=== PATIENT | female | born 1960 | race Caucasian/White ===

== ENCOUNTER → 2020-04-09 09:05 | Outpatient (BNVA) | payer OTHER, SELFPAY | PROVIDERS: PCP Family Medicine; Visit Provider Orthopaedic Surgery | DX: M19.011 Primary osteoarthritis, right shoulder (principal); M19.012 Primary osteoarthritis, left shoulder | CPT/HCPCS: 20610; J1100 ==

== ENCOUNTER 2020-04-09 09:44 | Outpatient (REF) | payer OTHER, SELFPAY ==
[2020-04-09 14:20] LABS: Alanine Aminotransferase 28 U/L (0-31); Anion Gap 16 (12-20); Aspartate Amino Transferase 45 U/L (5-31); Blood Urea Nitrogen 9 mg/dL (9-16); Carbon Dioxide 25 mmol/L (22-29); Chloride 105 mmol/L (96-108); Estimated Glomerular Filt Rate > 60; Potassium 3.5 mmol/l (3.3-5.1); Sodium 142 mmol/L (135-145)
== END 2020-04-09 09:45 | disposition home or self-care (01) ==
LOC: HO.10HDL 09:44
PROVIDERS: PCP Family Medicine; Visit Provider Family Medicine
DX: I10 Essential (primary) hypertension (principal); Z79.899 Other long term (current) drug therapy; E78.00 Pure hypercholesterolemia, unspecified
CPT/HCPCS: 80051; 82550; 82565; 84450; 84460; 84520

== ENCOUNTER → 2020-08-26 08:13 | Outpatient (BNVA) | payer OTHER, SELFPAY | PROVIDERS: PCP Family Medicine; Visit Provider Orthopaedic Surgery | DX: M19.011 Primary osteoarthritis, right shoulder (principal); M19.012 Primary osteoarthritis, left shoulder | CPT/HCPCS: 20610; J1040; J1100 ==

== ENCOUNTER → 2021-01-03 08:38 | Outpatient (BNVA) | payer OTHER, SELFPAY | PROVIDERS: PCP Family Medicine; Visit Provider Orthopaedic Surgery ==

== ENCOUNTER 2022-01-10 08:20 | Outpatient (REF) | payer OTHER, SELFPAY ==
[2022-01-10 11:17] LABS: Hemoglobin 12.7 g/dl (12.0-16.0); Mean Corpuscular HGB Conc 35.3 g/dl (31.0-35.0); Mean Corpuscular Hemoglobin 35.4 pg (27.0-33.0); Mean Corpuscular Volume 100.3 fL (80.0-98.0); Mean Platelet Volume 9.1 fL (9.4-12.3); Platelet Count 234 X10*3/uL (160-400); Red Blood Count 3.59 X10*6/uL (4.20-5.50); White Blood Count 5.6 X10*3/uL (4.8-10.8)
[2022-01-10 11:27] LABS: Estimated Average Glucose 97 mg/dL
[2022-01-10 11:33] LABS: Alanine Aminotransferase 32 U/L (0-31); Albumin Level 4.6 g/dL (3.5-5.0); Alkaline Phosphatase 63 U/L (39-117); Anion Gap 17 (12-20); Aspartate Amino Transferase 39 U/L (5-31); Bilirubin Total 3.1 mg/dL (0.0-1.0); Blood Urea Nitrogen 16 mg/dL (9-16); Calcium 9.7 mg/dL (8.4-10.2); Carbon Dioxide 23 mmol/L (22-29); Chloride 106 mmol/L (96-108); Cholesterol 261 mg/dL; Estimated Glomerular Filt Rate > 60; Glucose Fasting 119 mg/dL (60-99); HDL Cholesterol 108 mg/dL; LDL Cholesterol Calculated 137 mg/dl; Potassium 4.6 mmol/L (3.3-5.1); Sodium 141 mmol/L (135-145); Total Protein 7.4 g/dL (6.5-8.0); Triglycerides 80 mg/dL
[2022-01-10 11:34] LABS: Creatinine Urine 142.77 mg/dL; Microalbum/Creatinine Ratio Ur 6.3 ug/mg cr
[2022-01-10 11:50] LABS: TSH reflex Free T4 0.76 uIU/mL (0.32-4.0)
[2022-01-11 21:21] LABS: Lyme Abs Screen <0.90 index
== END 2022-01-10 08:21 | disposition home or self-care (01) ==
LOC: HO.10HDL 08:20
PROVIDERS: Visit Provider Physician Assistant
DX: I10 Essential (primary) hypertension (principal); E78.2 Mixed hyperlipidemia; T14.8XXA Other injury of unspecified body region, initial encounter; W57.XXXA Bitten or stung by nonvenomous insect and other nonvenomous arthropods, initial encounter
CPT/HCPCS: 36415; 80053; 80061; 82043; 83036; 84443; 85027; 86617; 86618

== ENCOUNTER 2023-03-22 08:17 | Outpatient (AMB) | payer OTHER, SELFPAY ==
[2023-03-22 08:41] VITALS: BP 124/84; BMI 27.5
--- NOTE | 2023-03-22 08:41 | A.OFFPC_ITS ---
Vital Signs 03/22/23 08:41 Height 5 ft 2 in Weight 150 lb 4 oz BMI 27.5 BP 124/84 Blood Pressure Location Lt brachial Position Sitting Pulse Source Pulse Oximeter Oxygen Delivery Method Room Air Intake Visit Reasons: 6 month f/u - see bulletin Home Demonstration Agent Required: No Rn Family: Not Required per policy Accompanied by: Self / Same As Patient Allergies codeine [CODEINE] Allergy (Mild, Verified 03/22/23 08:51) RASH alosetron [Lotronex] Allergy (Unknown, Verified 03/22/23 08:51) Unknown ampicillin Allergy (Unknown, Verified 03/22/23 08:51) Unknown ibuprofen Allergy (Unknown, Verified 03/22/23 08:51) Unknown meperidine [Demerol] Allergy (Unknown, Verified 03/22/23 08:51) Unknown naproxen [Naprosyn] Allergy (Unknown, Verified 03/22/23 08:51) hypertension environmental allergies Allergy (Verified 03/22/23 08:51) Unknown nabumetone Adverse Reaction (Intermediate, Verified 03/22/23 08:51) GI upset enoxaparin [From Lovenox] Adverse Reaction (Mild, Verified 03/22/23 08:51) MIGRAINE HEADACHES atenolol Adverse Reaction (Unknown, Verified 03/22/23 08:51) nausea From CODEINE PHOSPHATE SOLUBLE Allergy (Intermediate, Uncoded 03/22/23 08:42) RASH Medication List - Last Reconciled 03/22/23 by Yamil Peace PA-C atorvastatin 20 mg PO DAILY 90 days cyclobenzaprine 5 mg PO BEDTIME 30 days lisinopril 40 mg PO DAILY 90 days metoprolol succinate ER 50 mg PO BEDTIME 90 days tramadol 50 mg PO BID 30 days Tobacco use date assessed: 03/22/23 Dental Screening Dental Screen Date: 03/22/23 Did you have a dental visit in the last 12 months?: No Did you have a dental problem in the last 6 months where you did not have access to dental care?: No Was dental information given to patient?: Patient declined HPI 6 month f/u - see bulletin HPI Details Patient is a 62-year-old female here today for a follow-up visit Patient has a past medical history significant for hypertension, hyperlipidemia, osteoarthritis of shoulders, Knee osteoarthritis. Currently homeless and living in her ex husbands [facility]. .. Knee osteoarthritis:? Patient is by Orthopedics and does use tramadol for her arthritic pain.? She has had several knee surgeries in the past. .. Hypertension:? Blood pressure today in office acceptable. She reports her blood pressures are pretty stable with the use of lisinopril 40 mg and metoprolol 50 mg .. Hyperlipidemia:? Continues on statin therapy without any side effect.?.? Will follow lipids with goal LDL to be below 130. Alcohol use--> she does report drinking 3 vodka drinks per day.? We did discuss that her alcohol intake is excessive she somewhat agree. Noted elevated liver enzymes on most recent labs. She reports the reason she drinks is due to her anxiety. She feels it she can not sit still and feels often anxious. She is willing to try medication to help her with anxiety on a daily basis. [facility] Medical History High cholesterol Hypertension History of revision of total replacement of right knee joint Surgical History History of total right knee replacement Family History Mother Rheumatic aortic valve disease CVA (cerebral vascular accident) Father Dementia Social History Housing: Homeless ([facility] ) Alcohol intake: current Alcohol intake frequency: 3 or more drinks per day Alcohol type: hard liquor Patient Tobacco Use Status: Never used Tobacco Tobacco use type: Cigarette e-Cigarette/Vaping Use: Never Used Second Hand Smoke Exposure: No service: No Current occupational status: unemployed Current occupation: right and left handed Cognitive needs: No Hearing needs: No Vision needs: No Review of Systems Const Denies headache(s) Eyes Denies loss of vision ENT Denies vertigo, Denies dizziness, Denies headache(s) and Denies sore throat Card Denies chest pain, Denies leg edema and Denies lightheadedness Resp Denies cough, Denies hemoptysis and Denies wheezing GI Denies abdominal pain, Denies melena, Denies constipation, Denies diarrhea and Denies vomiting Denies urinary frequency, Denies dysuria and Denies urinary urgency Musc Denies arthralgias, Denies joint swelling, Denies numbness and Denies tingling Neuro Denies Abnormal speech present, Denies behavioral changes, Denies vertigo, Denies dizziness, Denies headache(s), Denies loss of vision, Denies memory loss, Denies numbness and Denies tingling Psych Denies anxiety, Denies behavioral changes, Denies depression, Denies memory loss and Denies panic attacks Anselmo/Lymph Denies easy bleeding and Denies easy bruising Aller/Immun Denies wheezing Physical exam (Primary Care) Vital Signs: Last Vital Signs BP 124/84 03/22/23 08:41 Oxygen Delivery Method Room Air 03/22/23 08:41 BMI result Body Mass Index 27.5 Tobacco/Smoking Status: Tobacco use Status Tobacco use date assessed 03/22/23 03/22/23 08:49 Patient Tobacco Use Status Never used Tobacco 03/22/23 08:49 Tobacco use type Cigarette 09/19/22 08:16 e-Cigarette/Vaping Use Never Used 03/22/23 08:49 Thrive Assessment: Date of Thrive Assessment Date Thrive assessed 05/03/22 09/19/22 07:58 Const General: healthy appearing, no acute distress, alert and awake Nutritional Appearance: well nourished Orientation/consciousness: oriented to person, oriented to place and oriented to time HENMT Ears: TM's normal bilaterally General nose exam: Normal nasal mucous membranes and turbinates present Eyes Conjunctivae: conjunctivae normal Sclerae: sclerae normal Pupils: Equal, round and reactive pupils present Neck Neck: Yes no lymphadenopathy and Yes no JVD Thyroid: Thyroid normal Carotids: no bruits Resp Effort & Inspection: normal respiratory effort and not tachypneic Auscultation: no crackles, no rales, no rhonchi and no wheezes Cardio Rate: regular rate Rhythm: regular rhythm Heart sounds: no murmurs and normal S1 and S2 GI Palpation (GI): Soft to palpation, nontender, no hepatomegaly and no splenomegaly Auscultation: normal bowel sounds Skin General skin exam: no rashes or lesions noted and dry skin Neuro General: oriented to person, oriented to place and oriented to time Cranial nerves: Yes Equal, round and reactive pupils present Speech: No Abnormal speech present Gait exam (Neuro): Normal gait present Motor exam (neuro): no tremor noted Extrem Right upper extremity: full ROM Left upper extremity: full ROM Right lower extremity: full ROM; no edema Left lower extremity: full ROM; no edema Psych Mental Status: mental status grossly normal Speech and movement: Normal speech and movement present Affect: normal affect Attitude: cooperative Thought process: Normal thought process present Assessment and Plan Assessment & Plan (1) HLD (hyperlipidemia): Code(s): E78.5 - Hyperlipidemia, unspecified Plan: Patient's most recent lipid panel showing very elevated total cholesterol. Has been working on lifestyle modifications to reduce her cholesterol. Continues on statin therapy as well. Goal LDL to be below 130 (2) HTN (hypertension): Code(s): I10 - Essential (primary) hypertension Plan: Patient's blood pressure acceptable today in office. . Continues on lisinopril 40 mg with goal blood pressure be below 140/90 (3) Elevated liver enzymes: Code(s): R74.8 - Abnormal levels of other serum enzymes Plan: Most recent labs showing slightly elevated liver enzymes likely due to alcohol intake. She does report drinking 2-3 vodka drinks per day. (4) Alcohol use disorder: Code(s): F10.90 - Alcohol use, unspecified, uncomplicated Plan: As above patient does admit to drinking 1-2 vodka drinks per day and does understand she needs to cut down a bit (5) Colon cancer screening: Code(s): Z12.11 - Encounter for screening for malignant neoplasm of colon Plan: Has failed to Cologuard test over last several years. now Willing to do Cologuard test (6) Breast cancer screening: Code(s): Z12.39 - Encounter for other screening for malignant neoplasm of breast Qualifiers: Breast cancer screening modality: mammogram Qualified Code(s): Z12.31 - Encounter for screening mammogram for malignant neoplasm of breast (7) MAXIMO (generalized anxiety disorder): Code(s): F41.1 - Generalized anxiety disorder Plan: Seems to be having anxiety which causes her drink. She is willing to start medication on a daily basis to help her with anxiety. Orders: Orders Lipid Panel Today E78.2 - Mixed hyperlipidemia Microalbumin, Random (w Creat) Today I10 - Essential (primary) hypertension Comprehensive [place]. Panel Fast Today I10 - Essential (primary) hypertension Complete Blood Count no Diff Today I10 - Essential (primary) hypertension Referrals Cologuard Test Z12.11 - Encounter for screening for malignant neoplasm of colon Medications: New diclofenac sodium 3% 1 appl topical BID 100 grams 1RF M19.019 - Primary osteoarthritis, unspecified shoulder citalopram (Celexa) 10 mg PO DAILY 30 days 30 tabs 2RF F41.1 - Generalized anxiety disorder Refilled lisinopril 40 mg PO DAILY 90 days 90 tabs 2RF I10 - Essential (primary) hypertension Coding Level of Care Code Est Pt Level 4 (19734) Diagnoses HLD (hyperlipidemia) E78.5 HTN (hypertension) I10 Elevated liver enzymes R74.8 Alcohol use disorder F10.90 Colon cancer screening Z12.11 Encounter for screening mammogram for malignant neoplasm of breast Z12.31 Breast cancer screening modality: mammogram MAXIMO (generalized anxiety disorder) F41.1
== END 2023-03-22 09:06 | disposition home or self-care (01) ==
PROVIDERS: Visit Provider Physician Assistant
DX: E78.5 Hyperlipidemia, unspecified (principal); I10 Essential (primary) hypertension; R74.8 Abnormal levels of other serum enzymes; F10.90 Alcohol use, unspecified, uncomplicated; Z12.11 Encounter for screening for malignant neoplasm of colon; Z12.31 Encounter for screening mammogram for malignant neoplasm of breast; F41.1 Generalized anxiety disorder
CPT/HCPCS: 99214

== ENCOUNTER 2023-05-18 08:03 | Outpatient (REF) | payer OTHER, SELFPAY ==
--- NOTE | ~2023-05-18 | XR_ITS ---
EXAMINATION: XR BILATERAL KNEES STANDING, LATERAL AND [place] CLINICAL INFORMATION: Pain and unspecified knee. COMPARISON: 01/06/2019 TECHNIQUE: AP standing view of bilateral knees. [place] and lateral views of bilateral knees. FINDINGS: Right Knee: Status post right knee total arthroplasty. Joint effusion. Hardware appears intact. Faint calcifications in the soft tissues anterior to the distal femur. Left Knee: Moderate medial joint space narrowing with medial marginal osteophytes. Trace joint effusion. Tiny posterior patellar osteophytes. XR/XR knee RT 2V IMPRESSION: 1. Status post right knee total arthroplasty. Hardware appears intact. 2. Moderate degenerative changes left knee.
--- NOTE | ~2023-05-18 | XR_ITS ---
EXAMINATION: XR BILATERAL KNEES STANDING, LATERAL AND SUNRISE CLINICAL INFORMATION: Pain and unspecified knee. COMPARISON: 01/06/2019 TECHNIQUE: AP standing view of bilateral knees. [place] and lateral views of bilateral knees. FINDINGS: Right Knee: Status post right knee total arthroplasty. Joint effusion. Hardware appears intact. Faint calcifications in the soft tissues anterior to the distal femur. Left Knee: Moderate medial joint space narrowing with medial marginal osteophytes. Trace joint effusion. Tiny posterior patellar osteophytes. XR/XR knee LT 2V IMPRESSION: 1. Status post right knee total arthroplasty. Hardware appears intact. 2. Moderate degenerative changes left knee.
--- NOTE | ~2023-05-18 | XR_ITS ---
EXAMINATION: XR BILATERAL KNEES STANDING, LATERAL AND SUNRISE CLINICAL INFORMATION: Pain and unspecified knee. COMPARISON: 01/06/2019 TECHNIQUE: AP standing view of bilateral knees. [place] and lateral views of bilateral knees. FINDINGS: Right Knee: Status post right knee total arthroplasty. Joint effusion. Hardware appears intact. Faint calcifications in the soft tissues anterior to the distal femur. Left Knee: Moderate medial joint space narrowing with medial marginal osteophytes. Trace joint effusion. Tiny posterior patellar osteophytes. XR/XR knee standing BI IMPRESSION: 1. Status post right knee total arthroplasty. Hardware appears intact. 2. Moderate degenerative changes left knee.
== END 2023-05-18 08:04 | disposition home or self-care (01) ==
LOC: HO.HOSX 08:03
PROVIDERS: Visit Provider Orthopaedic Surgery
DX: M25.562 Pain in left knee (principal); Z96.651 Presence of right artificial knee joint
CPT/HCPCS: 73560; 73565

== ENCOUNTER 2023-05-18 09:58 | Outpatient (AMB) | payer OTHER, SELFPAY ==
--- NOTE | 2023-05-18 10:11 | MHC.OFFVIS ---
Intake Intake Visit Reasons: Newprob- RT Knee pain Intake Note: Sloane is a 62 year old female who presents today for a new problem visit with complaints of bilateral knee pain. Patient reports that she has had ongoing pain for many years now, right knee is worse than the left. She has history of arthroscopy followed by Right TKA and then revision. No surgical history of the left knee. Currently she complains of pain in the posterior aspect of the right knee and the knee feels like it will give out on her Allergies codeine [CODEINE] Allergy (Mild, Verified 03/22/23 08:51) RASH alosetron [Lotronex] Allergy (Unknown, Verified 03/22/23 08:51) Unknown ampicillin Allergy (Unknown, Verified 03/22/23 08:51) Unknown ibuprofen Allergy (Unknown, Verified 03/22/23 08:51) Unknown meperidine [Demerol] Allergy (Unknown, Verified 03/22/23 08:51) Unknown naproxen [Naprosyn] Allergy (Unknown, Verified 03/22/23 08:51) hypertension environmental allergies Allergy (Verified 03/22/23 08:51) Unknown nabumetone Adverse Reaction (Intermediate, Verified 03/22/23 08:51) GI upset enoxaparin [From Lovenox] Adverse Reaction (Mild, Verified 03/22/23 08:51) MIGRAINE HEADACHES atenolol Adverse Reaction (Unknown, Verified 03/22/23 08:51) nausea From CODEINE PHOSPHATE SOLUBLE Allergy (Intermediate, Uncoded 03/22/23 08:42) RASH HPI Newprob- RT Knee pain HPI Details Sloane is a 62 year old woman who presents with complaints of bilateral knee pain, R>L. She reports having knee pain for several years, worse with walking or using stairs, along with feelings of instability. She localizes her right knee pain primarily to the posterior aspect. She has a hx of right & TKA. [facility] Medical History (Updated 05/18/23 @ 11:16 by Noel Eaton MD) High cholesterol Hypertension History of revision of total replacement of right knee joint Surgical History History of total right knee replacement Family History Mother Rheumatic aortic valve disease CVA (cerebral vascular accident) Father Dementia Social History Housing: Homeless ([facility] ) Alcohol intake: current Alcohol intake frequency: 3 or more drinks per day Alcohol type: hard liquor Patient Tobacco Use Status: Never used Tobacco Tobacco use type: Cigarette e-Cigarette/Vaping Use: Never Used Second Hand Smoke Exposure: No service: No Current occupational status: unemployed Current occupation: right and left handed Cognitive needs: No Hearing needs: No Vision needs: No Review of Systems Const All systems reviewed & are unremarkable except as noted in HPI and below Physical Exam Const General: no acute distress, alert and awake Orientation/consciousness: patient oriented x3 HEENT Head: Yes normocephalic and Yes atraumatic Eyes EOM: EOMs intact bilaterally Resp Effort & Inspection: normal respiratory effort and able to speak in complete sentences Cardio Jugular venous distension: no JVD Skin General skin exam: turgor normal Rashes: no rashes Neuro General: patient oriented x3 Extrem Other: left knee effusion and pain with palpation medial compartment. walking comfortably Psych Appearance: grossly normal Affect: normal affect Attitude: cooperative Results Reviewed Results Reviewed: I personally reviewed relevant radiographs. Right total knee arthroplasty in expected post operative position with no hardware complications or evidence of loosening Assessment & Plan Assessment & Plan (1) History of revision of total replacement of right knee joint: Code(s): Z96.651 - Presence of right artificial knee joint Plan: S/p revision arthoplasty done at [facility]. no inbtervention warranted at this time. f/u prn knee sleeve given Plan Prepared for Noel Eaton MD by Chris Ohara, medical equipment repairer, on 05/18/23 at 10:14 AM, EST. Orders: Orders XR knee standing BI Today M25.569 - Pain in unspecified knee XR knee LT 2V Today M25.569 - Pain in unspecified knee XR knee RT 2V Today M25.569 - Pain in unspecified knee Coding Level of Care Code New Pt Level 3 (71128) Diagnoses History of revision of total replacement of right knee joint Z96.651
== END 2023-05-18 10:46 | disposition home or self-care (01) ==
PROVIDERS: PCP Physician Assistant; Visit Provider Orthopaedic Surgery
DX: M25.562 Pain in left knee (principal); M25.561 Pain in right knee; Z96.651 Presence of right artificial knee joint
CPT/HCPCS: 99203

== ENCOUNTER 2023-09-25 07:56 | Outpatient (AMB) | payer OTHER, SELFPAY ==
[2023-09-25 08:09] VITALS: BP 132/82; PULSE 103; O2SAT 98; BMI 27.5
--- NOTE | 2023-09-25 08:09 | MHC.PC.OV ---
Vital Signs 09/25/23 08:09 Height 5 ft 2 in Weight 150 lb 6 oz BMI 27.5 BP 132/82 Blood Pressure Location Lt brachial Position Sitting Pulse 103 H Pulse Source Pulse Oximeter Pulse Oximetry (%) 98 Oxygen Delivery Method Room Air Intake Visit Reasons: ANNUAL Purchaser Required: No Accompanied by: Self / Same As Patient Allergies codeine [CODEINE] Allergy (Mild, Verified 09/25/23 08:26) RASH alosetron [Lotronex] Allergy (Unknown, Verified 09/25/23 08:26) Unknown ampicillin Allergy (Unknown, Verified 09/25/23 08:26) Unknown ibuprofen Allergy (Unknown, Verified 09/25/23 08:26) Unknown meperidine [Demerol] Allergy (Unknown, Verified 09/25/23 08:26) Unknown naproxen [Naprosyn] Allergy (Unknown, Verified 09/25/23 08:26) hypertension environmental allergies Allergy (Verified 09/25/23 08:26) Unknown nabumetone Adverse Reaction (Intermediate, Verified 09/25/23 08:26) GI upset enoxaparin [From Lovenox] Adverse Reaction (Mild, Verified 09/25/23 08:26) MIGRAINE HEADACHES atenolol Adverse Reaction (Unknown, Verified 09/25/23 08:26) nausea From CODEINE PHOSPHATE SOLUBLE Allergy (Intermediate, Uncoded 09/25/23 08:26) RASH Medication List - Last Reconciled 09/25/23 by Yamil Peace PA-C atorvastatin 20 mg PO DAILY 90 days citalopram (Celexa) 10 mg PO DAILY 30 days cyclobenzaprine 5 mg PO BEDTIME 30 days diclofenac sodium 1% (Arthritis Pain (diclofenac)) 2 grams topical QID 30 days lisinopril 40 mg PO DAILY 90 days metoprolol succinate ER 50 mg PO BEDTIME 90 days tramadol 50 mg PO BID 30 days Tobacco use date assessed: 09/25/23 Dental Screening Dental Screen Date: 09/25/23 Did you have a dental visit in the last 12 months?: No Did you have a dental problem in the last 6 months where you did not have access to dental care?: No Was dental information given to patient?: Patient has dentist HPI ANNUAL HPI Details Patient is a 62-year-old female here today for an annual physical. Patient has a past medical history significant for hypertension, hyperlipidemia, osteoarthritis of shoulders, Knee osteoarthritis. Currently homeless and living in her ex husbands [facility]. .. Concern--> over the last 2 weeks having a cough and some chest congestion. Denies any fevers or chills. She does report the cough is productive at times. Has been using hot soup to treat. Has not used any cough suppressant meds. .. Hypertension:? Blood pressure today in office acceptable. She reports her blood pressures are pretty stable with the use of lisinopril 40 mg and metoprolol 50 mg .. Hyperlipidemia:? Unfortunately has not gotten fasting labs done. Continues on statin therapy without any side effect.?.? Will follow lipids with goal LDL to be below 130. Alcohol use--> she does report drinking 1-3 vodka drinks per day.? We did discuss that her alcohol intake is excessive she somewhat agree. Noted elevated liver enzymes on most recent labs. She reports the reason she drinks is due to her anxiety. Was given Celexa 10 mg previously for her anxiety though apparently has stopped taking this medication. Vaccine: UTD with Tdap, Zoster and flu,?up-to-date with COVID vaccine . Mammo : Needs mammo though declining at this time. Colonoscopy: Has yet to get Cologuard done-currently declining the Cologuard [facility] Medical History High cholesterol Hypertension History of revision of total replacement of right knee joint Surgical History History of total right knee replacement Family History Mother Rheumatic aortic valve disease CVA (cerebral vascular accident) Father Dementia Social History Housing: Homeless ([facility] ) Alcohol intake: current Alcohol intake frequency: 3 or more drinks per day Alcohol type: hard liquor Patient Tobacco Use Status: Never used Tobacco Tobacco use type: Cigarette e-Cigarette/Vaping Use: Never Used Second Hand Smoke Exposure: No service: No Current occupational status: unemployed Current occupation: right and left handed Cognitive needs: No Hearing needs: No Vision needs: No Questionnaire PHQ-9 Over the last 2 weeks, how often have you been bothered by any of the following problems? 1. Little interest or pleasure in doing things: not at all 2. Feeling down, depressed, or hopeless: not at all 3. Trouble falling or staying asleep, or sleeping too much: not at all 4. Feeling tired or having little energy: not at all 5. Poor appetite or overeating: not at all 6. Feeling bad about yourself - or that you are a failure or have let yourself or your family down: not at all 7. Trouble concentrating on things, such as reading the newspaper or watching television: not at all 8. Moving or speaking so slowly that other people could have noticed. Or the opposite - being so fidgety or restless that you have been moving around a lot more than usual: not at all 9. Thoughts that you would be better off or of hurting yourself in some way: not at all Total score: 0 Depression Screening Interpretation: Negative Depression Screening Done: Yes 35115 - PHQ-9 Billing: Yes Source: Developed by Drs. Arie Barnes, Azucena Guevara, Alcon Reyes and colleagues, with an educational melody from [employer]. Thrive Questionnaire Date Thrive assessed: 09/25/23 I am a: Patient What is your living situation today?: I have a steady place to live Within the past 12 months, did the food you bought not last and you didn't have the money to get more?: Never true Within the past 12 months, did you worry whether your food would run out before you got money to buy more?: Never true Do you have trouble paying for medicines?: No Do you have trouble getting transportation to medical appointments?: No Do you have trouble paying your heating and electricity bill?: No Do you have trouble taking care of your child, family member or friend?: No Do you have trouble with day-to-day activities such as bathing, preparing meals, shopping, managing finances, etc.?: No Are you currently unemployed and looking for a job?: No Are you interested in more education?: No Please select the resources that you would like help with: None Currently or been in a relationship where the following occur: no concerns reported THRIVE Score: 0 AUDIT C Alcohol Use Questionnaire (AUDIT-C) 1. How often do you have a drink containing alcohol?: 4 or more times a week 2. How many drinks containing alcohol do you have on a typical day when you are drinking?: 1 or 2 (0) 3. How often do you have six or more drinks on one occasion?: Never Total Score: 4 Score Reviewed/Action Taken: No MAXIMO-7 AMB Questionnaire MAXIMO-7 Date MAXIMO - 7 assessed: 09/25/23 Feeling nervous, anxious, or on edge: 0 = Not at all Not being able to stop or control worryin = Not at all Worrying too much about different things: 0 = Not at all Trouble relaxin = Not at all Being so restless that it is hard to sit still: 0 = Not at all Becoming easily annoyed or irritable: 0 = Not at all Feeling afraid as if something awful might happen: 0 = Not at all Total MAXIMO-7 score (0-4 normal; 5-9 mild; 10-14 moderate; 15-21 severe): 0 Source: Developed by Drs. Arie Barnes, Azucena Guevara, Alcon Reyes and colleagues, with an educational melody from [employer]. MAXIMO-7 Assessment Billing MAXIMO-7 Assessment Tool: MAXIMO-7 Assessment 51326 Review of Systems Const Denies body aches, Denies chills, Denies excessive sweating, Denies fatigue, Denies fever(s) and Denies headache(s) Eyes Denies blurry vision ENT Denies dysphagia, Denies vertigo, Denies dizziness, Denies headache(s), Denies hearing loss and Denies tinnitus Card Denies chest pain, Denies chest pain with activity, Denies syncope, Denies irregular heart rhythm and Denies dyspnea Resp Reports chest congestion, Reports cough, Denies hemoptysis, Denies dyspnea and Denies wheezing GI Denies abdominal pain, Denies melena, Denies hematochezia, Denies coffee ground emesis, Denies dysphagia, Denies diarrhea, Denies nausea and Denies vomiting Denies urinary frequency, Denies dysuria, Denies urinary hesitancy and Denies urinary urgency Musc Denies arthralgias, Denies limited range of motion, Denies muscle cramps and Denies muscle weakness Skin/Breast Denies rash and Denies skin ulcer Neuro Denies Abnormal speech present, Denies confusion, Denies vertigo, Denies dizziness, Denies syncope, Denies headache(s), Denies memory loss and Denies seizure-like activity Psych Denies anxiety, Denies confusion, Denies depression, Denies memory loss, Denies panic attacks and Denies paranoia Endo Denies excessive sweating, Denies fatigue, Denies flushing, Denies polydipsia and Denies polyuria Aller/Immun Denies wheezing Physical exam (Primary Care) Vital Signs: Last Vital Signs Pulse 103 H 09/25/23 08:09 BP 132/82 09/25/23 08:09 Pulse Ox 98 09/25/23 08:09 Oxygen Delivery Method Room Air 09/25/23 08:09 BMI result Body Mass Index 27.5 Tobacco/Smoking Status: Tobacco use Status Tobacco use date assessed 09/25/23 09/25/23 08:22 Patient Tobacco Use Status Never used Tobacco 09/25/23 08:22 Tobacco use type Cigarette 09/25/23 08:22 e-Cigarette/Vaping Use Never Used 09/25/23 08:22 PHQ-9: PHQ-9 Score PHQ-9: Total score 0 09/25/23 08:24 Depression Screening Interpretation: Negative Thrive Assessment: Date of Thrive Assessment Date Thrive assessed 09/25/23 09/25/23 08:22 Currently or been in a relationship where the following occur: no concerns reported Const General: cooperative, comfortable, no acute distress, alert and awake; No confusion Orientation/consciousness: oriented to person, oriented to place, patient oriented x3 and No confusion HENMT Head: Yes normocephalic Ears: external ears normal and TM's normal bilaterally Face and sinus: No sinus tenderness Mouth: Normal oral and palatal mucosa present and tongue normal Teeth and gingiva: dentition normal and gingiva normal Throat: Yes posterior oropharynx normal, Yes tonsils normal and Yes uvula midline Eyes Conjunctivae: conjunctivae normal Sclerae: sclerae normal Pupils: Equal, round and reactive pupils present EOM: EOMs intact bilaterally Direct Ophthalmoscopy: No no photophobia Neck Neck: Yes no lymphadenopathy, No tender and Yes no JVD Thyroid: Thyroid normal Carotids: no bruits Chest Chest palpation & inspection: no tenderness Resp Effort & Inspection: normal respiratory effort, no audible wheezes, not labored and no stridor Auscultation: no crackles, no rales, no rhonchi and no wheezes Cardio Jugular venous distension: no JVD Rate: regular rate, not bradycardic and not tachycardic Rhythm: regular rhythm Bruits: no carotid bruits Peripheral pulses: Peripheral pulses 2+ throughout GI Inspection: Yes normal to inspection, No abdominal wall ecchymosis and No visible herniation Palpation (GI): Soft to palpation, nontender, no guarding, not rigid and No hepatosplenomegaly present Auscultation: normoactive bowel sounds General: Yes no CVA tenderness Back/Spine/Pelvis Back: no CVA tenderness and No back tenderness Cervical Spine: cervical ROM normal Thoracic/Lumbar Spine: thoracic and lumbar spine normal to inspection, straight leg raise negative bilaterally, No thoraco-lumbar ROM limited and No lumbar spinal tenderness Skin Lesions: no lesions Rashes: no rashes Wounds: no wounds Neuro General: oriented to person, oriented to place, patient oriented x3, CN's II-XI intact bilaterally and No confusion Cranial nerves: Yes Equal, round and reactive pupils present and Yes Normal accommodation reflex present Cognition (Neuro): normal cognition Speech: No Abnormal speech present Gait exam (Neuro): Normal gait present Motor exam (neuro): 5/5 motor strength present throughout Extrem Right upper extremity: full ROM; no cyanosis Left upper extremity: full ROM; no cyanosis Right lower extremity: no edema Left lower extremity: no edema Psych Appearance: grossly normal Mental Status: mental status grossly normal Affect: normal affect Attitude: cooperative Thought process: Normal thought process present Assessment and Plan Assessment & Plan (1) Annual physical exam: Code(s): Z00.00 - Encounter for general adult medical examination without abnormal findings (2) Breast cancer screening: Code(s): Z12.39 - Encounter for other screening for malignant neoplasm of breast Qualifiers: Breast cancer screening modality: mammogram Qualified Code(s): Z12.31 - Encounter for screening mammogram for malignant neoplasm of breast Plan: Continues to decline mammogram (3) Bronchitis: Code(s): J40 - Bronchitis, not specified as acute or chronic Plan: Reports over last 2 weeks having a cough and some chest congestion worse at night. Has been drinking warm chicken broth. Otherwise denies any fevers chills. She does report the cough is productive of sputum at times. (4) HLD (hyperlipidemia): Code(s): E78.5 - Hyperlipidemia, unspecified Qualifiers: Hyperlipidemia type: mixed hyperlipidemia Qualified Code(s): E78.2 - Mixed hyperlipidemia Plan: Unfortunately has not gotten fasting labs done. Continues on atorvastatin 10 mg without side effect. Goal LDL is to remain below 130. (5) HTN (hypertension): Code(s): I10 - Essential (primary) hypertension Qualifiers: Hypertension type: primary hypertension Qualified Code(s): I10 - Essential (primary) hypertension Plan: Patient's blood pressure acceptable today in office. Will continue her current dose of antihypertensive medication. Goal blood pressures to remain below 140/90 Orders: Orders XR chest 2V Today J40 - Bronchitis, not specified as acute or chronic Medications: New dextromethorphan-guaifenesin 5-50 mg/5 mL (Robitussin Cough-Chest Congestion DM) 20 mL PO Q4-6H PRN 237 mL 0RF cough 10 days J40 - Bronchitis, not specified as acute or chronic Discontinued citalopram (Celexa) Discontinued Reason: Doctor's Order 10 mg PO DAILY 30 days 30 tabs 2RF F41.1 - Generalized anxiety disorder Patient Instructions: Goal: Blood pressure to be below 140/90 Barriers: Adherence to physical activity healthy eating habits Coding Level of Care Code Est Pt Prev Care 40-64y(81171) Diagnoses Annual physical exam Z00.00 Encounter for screening mammogram for malignant neoplasm of breast Z12.31 Breast cancer screening modality: mammogram Bronchitis J40 Mixed hyperlipidemia E78.2 Hyperlipidemia type: mixed hyperlipidemia Primary hypertension I10 Hypertension type: primary hypertension Additional Codes MAXIMO-7 Assessment Billing - MAXIMO-7 Assessment Tool: MAXIMO-7 Assessment 61021 ([id number])
== END 2023-09-25 08:47 | disposition home or self-care (01) ==
PROVIDERS: PCP Physician Assistant; Visit Provider Physician Assistant
DX: Z00.00 Encounter for general adult medical examination without abnormal findings (principal); Z12.31 Encounter for screening mammogram for malignant neoplasm of breast; J40 Bronchitis, not specified as acute or chronic; E78.2 Mixed hyperlipidemia; I10 Essential (primary) hypertension
CPT/HCPCS: 99396

== ENCOUNTER 2023-12-11 08:13 | Outpatient (REF) | payer BC, SELFPAY ==
--- NOTE | ~2023-12-11 | XR_ITS ---
EXAMINATION: XR ANKLE, LEFT CLINICAL INFORMATION: Sprain of unspecified ligament of left ankle. Pain dorsal surface of base of first metatarsal. COMPARISON: None available. TECHNIQUE: AP, lateral, and mortise views of the left ankle. FINDINGS: Alignment is anatomic. The ankle mortise appears intact. No visible fracture. Mild medial soft tissue swelling. Plantar calcaneal spur. XR/XR ankle LT 2V IMPRESSION: Mild medial soft tissue swelling. No visible fracture. The first metatarsal is not adequately evaluated on ankle radiograph. If clinical suspicion persists, a dedicated 4 view foot series is recommended. Electronically signed by: Salvador Rivas MD 12/19/2023 08:23 AM EDT
== END 2023-12-11 08:14 | disposition home or self-care (01) ==
LOC: HO.XRAY 08:13
PROVIDERS: PCP Physician Assistant; Visit Provider Physician Assistant
DX: S93.402A Sprain of unspecified ligament of left ankle, initial encounter (principal)
CPT/HCPCS: 73600

== ENCOUNTER 2023-12-28 08:27 | Outpatient (AMB) | payer BC, SELFPAY ==
[2023-12-28 08:29] VITALS: BMI 27.4
--- NOTE | 2023-12-28 08:29 | MHC.OFFVIS ---
Vital Signs 12/28/23 08:29 Height 5 ft 2 in Weight 150 lb BMI 27.4 Intake Visit Reasons: NewProb- LT ankle pain, DOI 06/21/23 Intake Note: Sloane a 63 year old female who presents today for an evaluation of left ankle pain, DOI 06/21/23. Patient reports that she was walking her dog on a frozen and uneven ground, when her dog took off after a cat causing her to twist her ankle. She has a lump at the top of her foot and pain that radiates into her ankle. Her pain has been getting worse. She was seen by her PCP who referred patient to orthopedics, no other tx. She has purchased an OTC air cast however she has not yet tried. Allergies codeine [CODEINE] Allergy (Mild, Verified 12/28/23 08:43) RASH alosetron [Lotronex] Allergy (Unknown, Verified 12/28/23 08:43) Unknown ampicillin Allergy (Unknown, Verified 12/28/23 08:43) Unknown ibuprofen Allergy (Unknown, Verified 12/28/23 08:43) Unknown meperidine [Demerol] Allergy (Unknown, Verified 12/28/23 08:43) Unknown naproxen [Naprosyn] Allergy (Unknown, Verified 12/28/23 08:43) hypertension environmental allergies Allergy (Verified 12/28/23 08:43) Unknown nabumetone Adverse Reaction (Intermediate, Verified 12/28/23 08:43) GI upset enoxaparin [From Lovenox] Adverse Reaction (Mild, Verified 12/28/23 08:43) MIGRAINE HEADACHES atenolol Adverse Reaction (Unknown, Verified 12/28/23 08:43) nausea From CODEINE PHOSPHATE SOLUBLE Allergy (Intermediate, Uncoded 12/28/23 08:43) RASH HPI HPI NewProb- LT ankle pain, DOI 06/21/23: Details: 63-year-old female who presents to the office today for an evaluation of left ankle injury, 06/21/23. She reports she was walking her dog on a frozen and uneven ground when her dog took off after a cat causing her to twist her ankle. She was seen by her PCP who referred her to our office. She currently states she has a lump at the top of her foot as well as worsening pain that radiates into her ankle. She has not had any physical therapy or other treatment in the past. [facility] Medical History High cholesterol Hypertension History of revision of total replacement of right knee joint Surgical History History of total right knee replacement Family History Mother Rheumatic aortic valve disease CVA (cerebral vascular accident) Father Dementia Social History Housing: Homeless ([facility] ) Alcohol intake: current Alcohol intake frequency: 3 or more drinks per day Alcohol type: hard liquor Patient Tobacco Use Status: Never used Tobacco Tobacco use type: Cigarette e-Cigarette/Vaping Use: Never Used Second Hand Smoke Exposure: No service: No Current occupational status: unemployed Current occupation: right and left handed Cognitive needs: No Hearing needs: No Vision needs: No Review of Systems Const All systems reviewed & are unremarkable except as noted in HPI and below Physical Exam Vital Signs: BMI result Body Mass Index 27.4 Extrem Other: Left foot: Normal to inspection. She does have tenderness over the dorsum of the foot. No redness or swelling. No medial or lateral foot pain. No instability. NVI. Results Reviewed Results Reviewed: XR ankle LT 2V IMPRESSION: Mild medial soft tissue swelling. No visible fracture. The first metatarsal is not adequately evaluated on ankle radiograph. If clinical suspicion persists, a dedicated 4 view foot series is recommended. Assessment & Plan Assessment & Plan (1) Osteoarthritis of left foot: Code(s): M19.072 - Primary osteoarthritis, left ankle and foot Category: Medical Plan I did recommend a course of physical therapy which she declined. I sent her a prescription of Celebrex which she will take twice a day for 2 weeks. If symptoms persist or worsen, patient will contact the office and we can refer her to a foot and ankle specialist, otherwise follow-up as needed. Medications: New celecoxib (Celebrex) 200 mg PO BID 60 caps 3RF 30 days Patient Instructions: Scribed for Pranav Marcial PA-C, by Amaury Sethi medical lab director, on 12/28/2023 at 8:30 AM EST.? I, Pranav Marcial PA-C, have personally reviewed and agree with the information entered by the scribe. Coding Level of Care Code New Pt Level 3 (79986) Complex EM visit Add On G2211 Diagnoses Osteoarthritis of left foot M19.072
== END 2023-12-28 08:57 | disposition home or self-care (01) ==
PROVIDERS: PCP Physician Assistant; Visit Provider Physician Assistant
DX: M19.072 Primary osteoarthritis, left ankle and foot (principal)
CPT/HCPCS: 99204

== ENCOUNTER → 2023-12-28 08:27 | Outpatient (BNVA) | payer BC, SELFPAY | PROVIDERS: PCP Physician Assistant; Visit Provider Physician Assistant ==

== ENCOUNTER 2024-02-07 07:21 | Outpatient (REF) | payer BC, SELFPAY ==
--- NOTE | ~2024-02-07 | MR_ITS ---
EXAMINATION: MR ANKLE WITHOUT CONTRAST, LEFT CLINICAL INFORMATION: Left ankle pain and swelling for 6 months. Evaluate for soft tissue disruption. COMPARISON: X-rays of the left ankle November 2023. TECHNIQUE: MRI of the ankle was performed using routine sequences on a high-field scanner. FINDINGS: SUBCUTANEOUS SOFT TISSUES: Mild edema along the medial aspect of the ankle. PLANTAR FASCIA: Normal. MUSCLES/TENDONS: Peroneal Brevis: There is a longitudinal tear as the tendon passes below the fibula to the level of the peroneal tubercle. Distally the tendon is intact. Peroneal Longus: Intact. The remaining muscles and tendons are intact. NEUROVASCULAR STRUCTURES/TARSAL TUNNEL: Normal. SINUS TARSI: Normal. LIGAMENTS: Intact. BONES/CARTILAGE: Naviculocuneiform Joint: There is nonuniform up to high-grade cartilage loss with subchondral cystic change across the navicular medial cuneiform joint. 1st Tarsometatarsal Joint: There is cartilage heterogeneity and prominent subchondral cystic change at the base of the 1st metatarsal indicative of [id number] arthrosis. There is mild arthrosis of the 2nd and 3rd tarsometatarsal joints manifested by cartilage heterogeneity and subchondral edema. MR/MR ankle LT wo con IMPRESSION: 1. Longitudinal partial tear of the peroneal brevis tendon. 2. Osteoarthritis in the midfoot. Electronically signed by: Marlon Power MD 02/17/2024 07:50 AM EDT
== END 2024-02-07 07:22 | disposition home or self-care (01) ==
LOC: HO.MRI 07:21
PROVIDERS: PCP Physician Assistant; Visit Provider Physician Assistant
DX: M25.572 Pain in left ankle and joints of left foot (principal); G89.29 Other chronic pain
CPT/HCPCS: 73721

== ENCOUNTER 2024-02-11 09:44 | Outpatient (AMB) | payer BC, SELFPAY ==
--- NOTE | 2024-02-11 09:49 | MHC.OFFVIS ---
Intake Visit Reasons: OV - Right Knee Pain - Hx of TKA Revision [facility] Intake Note: Sloane is a 63 year old female who presents today for a follow up of her right knee, S/p revision arthoplasty done at [facility]. At her last visit she was given a knee brace Allergies codeine [CODEINE] Allergy (Mild, Verified 12/28/23 08:43) RASH alosetron [Lotronex] Allergy (Unknown, Verified 12/28/23 08:43) Unknown ampicillin Allergy (Unknown, Verified 12/28/23 08:43) Unknown ibuprofen Allergy (Unknown, Verified 12/28/23 08:43) Unknown meperidine [Demerol] Allergy (Unknown, Verified 12/28/23 08:43) Unknown naproxen [Naprosyn] Allergy (Unknown, Verified 12/28/23 08:43) hypertension environmental allergies Allergy (Verified 12/28/23 08:43) Unknown nabumetone Adverse Reaction (Intermediate, Verified 12/28/23 08:43) GI upset enoxaparin [From Lovenox] Adverse Reaction (Mild, Verified 12/28/23 08:43) MIGRAINE HEADACHES atenolol Adverse Reaction (Unknown, Verified 12/28/23 08:43) nausea From CODEINE PHOSPHATE SOLUBLE Allergy (Intermediate, Uncoded 12/28/23 08:43) RASH HPI HPI OV - Right Knee Pain - Hx of TKA Revision [facility]: Details: Sloane is a 63 year old female who presents today for a follow up of her right knee, S/p revision arthoplasty done at [facility]. At her last visit she was given a knee brace. SHe walks comfortably with occasional medial right knee pain. [facility] Medical History High cholesterol Hypertension History of revision of total replacement of right knee joint Surgical History History of total right knee replacement Family History Mother Rheumatic aortic valve disease CVA (cerebral vascular accident) Father Dementia Social History Housing: Homeless ([facility] ) Alcohol intake: current Alcohol intake frequency: 3 or more drinks per day Alcohol type: hard liquor Patient Tobacco Use Status: Never used Tobacco Tobacco use type: Cigarette e-Cigarette/Vaping Use: Never Used Second Hand Smoke Exposure: No service: No Current occupational status: unemployed Current occupation: right and left handed Cognitive needs: No Hearing needs: No Vision needs: No Physical Exam Extrem Other: Walking comfortably. Right knee with no effusion and well-healed incision. Full range of motion with no instability Assessment & Plan Assessment & Plan (1) History of revision of total replacement of right knee joint: Code(s): Z96.651 - Presence of right artificial knee joint Category: Medical Plan: This is a 63-year-old woman with a history revision right knee arthroplasty. She has good function and no evidence of failure or complication. Not sure why she is here today as she is walking comfortably. I states she seems like she is doing well and this seemed to be satisfactory for her. Follow up p.r.n. Coding Level of Care Code Est Pt Level 3 (02649) Diagnoses History of revision of total replacement of right knee joint Z96.651
== END 2024-02-11 10:12 | disposition home or self-care (01) ==
PROVIDERS: PCP Physician Assistant; Visit Provider Orthopaedic Surgery
DX: Z47.89 Encounter for other orthopedic aftercare (principal); Z96.651 Presence of right artificial knee joint
CPT/HCPCS: 99212

== ENCOUNTER → 2024-02-11 09:44 | Outpatient (BNVA) | payer BC, SELFPAY | PROVIDERS: PCP Physician Assistant; Visit Provider Orthopaedic Surgery ==

== ENCOUNTER 2024-02-29 08:26 | Outpatient (REF) | payer BC, SELFPAY ==
[2024-02-29 10:57] LABS: Hemoglobin 13.2 g/dl (12.0-16.0); Mean Corpuscular HGB Conc 35.7 g/dl (31.0-35.0); Mean Corpuscular Hemoglobin 35.3 pg (27.0-33.0); Mean Corpuscular Volume 98.9 fL (80.0-98.0); Platelet Count 257 X10*3/uL (160-400); Red Blood Count 3.74 X10*6/uL (4.20-5.50); Red Cell Distribution Width 11.5 % (11.0-16.0); White Blood Count 7.7 X10*3/uL (4.8-10.8)
[2024-02-29 11:28] LABS: Alanine Aminotransferase 25 U/L (0-31); Albumin Level 4.5 g/dL (3.5-5.0); Alkaline Phosphatase 69 U/L (39-117); Anion Gap 14 (12-20); Aspartate Amino Transferase 35 U/L (5-31); Bilirubin Total 3.5 mg/dL (0.0-1.0); Blood Urea Nitrogen 20 mg/dL (9-16); Calcium 9.3 mg/dL (8.4-10.2); Carbon Dioxide 23 mmol/L (22-29); Chloride 102 mmol/L (96-108); Cholesterol 223 mg/dL (<200); Estimated Glomerular Filt Rate > 60; Glucose Fasting 113 mg/dL (60-99); HDL Cholesterol 97 mg/dL (>40); LDL Cholesterol Calculated 76 mg/dL (<100); Potassium 4.4 mmol/L (3.3-5.1); Sodium 135 mmol/L (135-145); Total Protein 7.4 g/dL (6.5-8.0); Triglycerides 252 mg/dL (<150)
[2024-02-29 12:16] LABS: Creatinine Urine 14.32 mg/dL; Microalbumin Urine < 5.0 mg/L
== END 2024-02-29 08:27 | disposition home or self-care (01) ==
LOC: HO.10HDL 08:26
PROVIDERS: Visit Provider Physician Assistant
DX: I10 Essential (primary) hypertension (principal); E78.2 Mixed hyperlipidemia
CPT/HCPCS: 36415; 80053; 80061; 82570; 85027

== ENCOUNTER 2024-03-05 08:57 | Outpatient (AMB) | payer BC, SELFPAY ==
[2024-03-05 09:14] VITALS: BP 142/100; PULSE 116; O2SAT 98; BMI 27.4
--- NOTE | 2024-03-05 09:14 | A.OFFPC_ITS ---
Vital Signs 03/05/24 09:14 03/05/24 09:37 Height 5 ft 2 in Weight 150 lb BMI 27.4 BP 142/100 H 128/82 Blood Pressure Location Lt brachial Position Sitting Pulse 116 H Pulse Source Pulse Oximeter Pulse Oximetry (%) 98 Oxygen Delivery Method Room Air Intake Visit Reasons: f/u HTN/ HLD [employer] Required: No Accompanied by: Self / Same As Patient Allergies codeine [CODEINE] Allergy (Mild, Verified 03/05/24 09:17) RASH alosetron [Lotronex] Allergy (Unknown, Verified 03/05/24 09:17) Unknown ampicillin Allergy (Unknown, Verified 03/05/24 09:17) Unknown ibuprofen Allergy (Unknown, Verified 03/05/24 09:17) Unknown meperidine [Demerol] Allergy (Unknown, Verified 03/05/24 09:17) Unknown naproxen [Naprosyn] Allergy (Unknown, Verified 03/05/24 09:17) hypertension environmental allergies Allergy (Verified 03/05/24 09:17) Unknown nabumetone Adverse Reaction (Intermediate, Verified 03/05/24 09:17) GI upset enoxaparin [From Lovenox] Adverse Reaction (Mild, Verified 03/05/24 09:17) MIGRAINE HEADACHES atenolol Adverse Reaction (Unknown, Verified 03/05/24 09:17) nausea From CODEINE PHOSPHATE SOLUBLE Allergy (Intermediate, Uncoded 03/05/24 09:17) RASH Tobacco use date assessed: 09/25/23 Dental Screening Dental Screen Date: 09/25/23 HPI f/u HTN/ HLD HPI Details Patient is a 63 -year-old female here today for a follow-up visit Patient has a past medical history significant for hypertension, hyperlipidemia, osteoarthritis of shoulders, Knee osteoarthritis. Currently homeless and living in her ex [facility]. .. Concern--> noted elevated total bilirubin over last few years. Could be due to her daily vodka intake. Noted bilirubin slightly more elevated on most recent labs. Patient willing to get ultrasound abdomen to evaluate her liver and gallbladder. .. Hypertension:? Blood pressure today in office acceptable. She reports her blood pressures are pretty stable with the use of lisinopril 40 mg and metoprolol 50 mg .. Hyperlipidemia:? Most recent lipid panel showing improved total cholesterol and LDL. She continues on atorvastatin 20 mg without effect Continues on statin therapy without any side effect.?.? Will follow lipids with goal LDL to be below 130. Alcohol use--> she does report drinking 1-3 vodka drinks per day.? We did discuss that her alcohol intake is excessive she somewhat agree. Noted elevated liver enzymes on most recent labs. She reports the reason she drinks is due to her anxiety. /.. Laboratory Tests 01/10/22 02/29/24 08:25 08:29 RBC 3.59 L 3.74 L Fasting Glucose 119 H 113 H Total Bilirubin 3.1 H 3.5 H AST 39 H 35 H Triglycerides 252 H Cholesterol 223 H LDL Cholesterol, C alc 137 76 PFS Medical History High cholesterol Hypertension History of revision of total replacement of right knee joint Surgical History History of total right knee replacement Family History Mother Rheumatic aortic valve disease CVA (cerebral vascular accident) Father Dementia Social History Housing: Homeless ([facility] ) Alcohol intake: current Alcohol intake frequency: 3 or more drinks per day Alcohol type: hard liquor Patient Tobacco Use Status: Never used Tobacco Tobacco use type: Cigarette e-Cigarette/Vaping Use: Never Used Second Hand Smoke Exposure: No service: No Current occupational status: unemployed Current occupation: right and left handed Cognitive needs: No Hearing needs: No Vision needs: No Questionnaire Thrive Questionnaire Date Thrive assessed: 09/25/23 AUDIT C Alcohol Use Questionnaire (AUDIT-C) 2. How many drinks containing alcohol do you have on a typical day when you are drinking?: 1 or 2 3. How often do you have six or more drinks on one occasion?: Never Total Score: 0 MAXIMO-7 AMB Questionnaire MAXIMO-7 Date MAXIMO - 7 assessed: 09/25/23 Source: Developed by Drs. Arie Barnes, Azucena Guevara, Alcon Reyes and colleagues, with an educational melody from [employer]. Review of Systems Const Denies headache(s) Eyes Denies loss of vision ENT Denies vertigo, Denies dizziness, Denies headache(s) and Denies sore throat Card Denies chest pain, Denies leg edema and Denies lightheadedness Resp Denies cough, Denies hemoptysis and Denies wheezing GI Denies abdominal pain, Denies melena, Denies constipation, Denies diarrhea and Denies vomiting Denies urinary frequency, Denies dysuria and Denies urinary urgency Musc Denies arthralgias, Denies joint swelling, Denies numbness and Denies tingling Neuro Denies Abnormal speech present, Denies behavioral changes, Denies vertigo, Denies dizziness, Denies headache(s), Denies loss of vision, Denies memory loss, Denies numbness and Denies tingling Psych Denies anxiety, Denies behavioral changes, Denies depression, Denies memory loss and Denies panic attacks Anselmo/Lymph Denies easy bleeding and Denies easy bruising Aller/Immun Denies wheezing Physical exam (Primary Care) Vital Signs: Last Vital Signs Pulse 116 H 03/05/24 09:14 BP 128/82 03/05/24 09:37 Pulse Ox 98 03/05/24 09:14 Oxygen Delivery Method Room Air 03/05/24 09:14 BMI result Body Mass Index 27.4 Tobacco/Smoking Status: Tobacco use Status Tobacco use date assessed 09/25/23 03/05/24 09:15 Patient Tobacco Use Status Never used Tobacco 03/05/24 09:15 Tobacco use type Cigarette 03/05/24 09:15 e-Cigarette/Vaping Use Never Used 03/05/24 09:15 Thrive Assessment: Date of Thrive Assessment Date Thrive assessed 09/25/23 03/05/24 09:15 Const General: healthy appearing, no acute distress, alert and awake Nutritional Appearance: well nourished Orientation/consciousness: oriented to person, oriented to place and oriented to time HENMT Ears: TM's normal bilaterally General nose exam: Normal nasal mucous membranes and turbinates present Eyes Conjunctivae: conjunctivae normal Sclerae: sclerae normal Pupils: Equal, round and reactive pupils present Neck Neck: Yes no lymphadenopathy and Yes no JVD Thyroid: Thyroid normal Carotids: no bruits Resp Effort & Inspection: normal respiratory effort and not tachypneic Auscultation: no crackles, no rales, no rhonchi and no wheezes Cardio Rate: regular rate Rhythm: regular rhythm Heart sounds: no murmurs and normal S1 and S2 GI Palpation (GI): Soft to palpation, nontender, no hepatomegaly and no splenomegaly Auscultation: normal bowel sounds Skin General skin exam: no rashes or lesions noted and dry skin Neuro General: oriented to person, oriented to place and oriented to time Cranial nerves: Yes Equal, round and reactive pupils present Speech: No Abnormal speech present Gait exam (Neuro): Normal gait present Motor exam (neuro): no tremor noted Extrem Right upper extremity: full ROM Left upper extremity: full ROM Right lower extremity: full ROM; no edema Left lower extremity: full ROM; no edema Psych Mental Status: mental status grossly normal Speech and movement: Normal speech and movement present Affect: normal affect Attitude: cooperative Thought process: Normal thought process present Office Procedures Flu Questionnaire Does the patient have a severe egg allergy?: No Immunizations Fluarix Triv [id number] (PF) 45 mcg (15 mcg x 3)/0.5 mL IM syringe Performing Provider: Yamil Peace PA-C [facility] Documented (not given) by: CLAUDINE Roman on 03/05/24 09:23 Reason Not Given: Received Previously Coding Level of Care Code Est Pt Level 4 (86804) Diagnoses Primary hypertension I10 Hypertension type: primary hypertension Total bilirubin, elevated R17 Elevated liver enzymes R74.8 Mixed hyperlipidemia E78.2 Hyperlipidemia type: mixed hyperlipidemia Impaired glucose metabolism R73.09 Tear of tendon of left ankle, subsequent encounter S96.912D Encounter type: subsequent encounter Assessment & Plan Assessment & Plan (1) HTN (hypertension): Code(s): I10 - Essential (primary) hypertension Category: Medical Qualifiers: Hypertension type: primary hypertension Qualified Code(s): I10 - Essential (primary) hypertension Plan: Patient's blood pressure acceptable today in office. She continues with lisinopril 40 mg Goal blood pressures to remain below 140/90 (2) Total bilirubin, elevated: Code(s): R17 - Unspecified jaundice Category: Medical Plan: Patient's total bilirubin remains elevated. She does admit to drinking a few drinks with vodka daily. She is due for an ultrasound of her abdomen. Advised to reduce her vodka intake. (3) Elevated liver enzymes: Code(s): R74.8 - Abnormal levels of other serum enzymes Category: Medical Plan: As above (4) HLD (hyperlipidemia): Code(s): E78.5 - Hyperlipidemia, unspecified Category: Medical Qualifiers: Hyperlipidemia type: mixed hyperlipidemia Qualified Code(s): E78.2 - Mixed hyperlipidemia Plan: Patient's most recent lipid panel showing much improved total cholesterol and LDL. Patient continues on atorvastatin 20 mg. She continues to work on dietary modifications. Goal LDL is to remain below 130 (5) Impaired glucose metabolism: Code(s): R73.09 - Other abnormal glucose Category: Medical Plan: Patient's most recent fasting blood sugar improved though slightly still elevated at 113. She will continue working on lifestyle and dietary modifications. (6) Tear of tendon of left ankle: Code(s): S96.912A - Strain of unspecified muscle and tendon at ankle and foot level, left foot, initial encounter Category: Medical Qualifiers: Encounter type: subsequent encounter Qualified Code(s): S96.912D - Strain of unspecified muscle and tendon at ankle and foot level, left foot, subsequent encounter Plan: Patient's MRI of ankle did show a peroneal tendon tear. She still does have some significant pain when standing and walking. She is not interested in a physical therapies noting that she continues to walk a lot. She will be following up with a foot and ankle specialist Orders: Orders Influenza [id number] Immunization 03/05/24 Z23 - Encounter for immunization Hemoglobin A1c 03/05/24 R73.09 - Other abnormal glucose Microalbumin, Random (w Creat) 03/05/24 I10 - Essential (primary) hypertension Comprehensive [place]. Panel Fast 03/05/24 R73.09 - Other abnormal glucose Complete Blood Count no Diff 03/05/24 I10 - Essential (primary) hypertension Lipid Panel 03/05/24 E78.2 - Mixed hyperlipidemia
[2024-03-05 09:37] VITALS: BP 128/82
== END 2024-03-05 09:52 | disposition home or self-care (01) ==
PROVIDERS: PCP Physician Assistant; Visit Provider Physician Assistant
DX: I10 Essential (primary) hypertension (principal); R17 Unspecified jaundice; R74.8 Abnormal levels of other serum enzymes; E78.2 Mixed hyperlipidemia; R73.09 Other abnormal glucose; S96.912D Strain of unspecified muscle and tendon at ankle and foot level, left foot, subsequent encounter

== ENCOUNTER → 2024-03-05 08:57 | Outpatient (BNVA) | payer BC, SELFPAY | PROVIDERS: PCP Physician Assistant; Visit Provider Physician Assistant | DX: I10 Essential (primary) hypertension (principal); R17 Unspecified jaundice; R74.8 Abnormal levels of other serum enzymes; E78.2 Mixed hyperlipidemia; R73.09 Other abnormal glucose; S96.912D Strain of unspecified muscle and tendon at ankle and foot level, left foot, subsequent encounter | CPT/HCPCS: 90471 ==